=== PATIENT | male | born 1965 | race Caucasian/White ===

== ENCOUNTER 2022-11-21 07:11 | Day surgery (SDC) | payer OTHER ==
[~2022-11-21] VITALS: Ht 160 cm; Wt 90.7 kg
[2022-11-21] MEDS ORDERED: diphenhydrAMINE 50 MG/ML VIAL ONE (08:08)
[2022-11-21] MEDS ORDERED: fentaNYL citrate 0.05 MG/ML VIAL ONE (08:09)
[2022-11-21] MEDS ORDERED: MIDAZOLAM 2 MG/2 ML VIAL ONE (08:09)
[2022-11-21] MEDS ORDERED: LIDOCAINE 2% 100 MG/5 ML UJET TP ONE (08:09)
[2022-11-21] MEDS ORDERED: fentaNYL citrate 0.05 MG/ML VIAL IVP ONE (12:30)
[2022-11-21] MEDS ORDERED: MIDAZOLAM 2 MG/2 ML VIAL IVP ONE (12:30)
== END 2022-11-21 10:45 | disposition home or self-care (01) ==
LOC: MDS 07:11 → MMU 07:12 → MDS 10:45
PROVIDERS: ATTEND Internal Medicine Gastroenterology
DX: Z12.11 Encounter for screening for malignant neoplasm of colon (principal); K63.5 Polyp of colon; K57.30 Diverticulosis of large intestine without perforation or abscess without bleeding; F17.210 Nicotine dependence, cigarettes, uncomplicated; Z79.899 Other long term (current) drug therapy; Z20.822 Contact with and (suspected) exposure to COVID-19
CPT/HCPCS: 45385; 87426; J2250; J3010; 88305; J1200